=== PATIENT | male | born 1940 | race Caucasian/White ===

== ENCOUNTER 2022-02-03 06:49 | Emergency (ER) | payer MEDICARE, SELFPAY ==
[2022-02-03 06:58] VITALS: BP 116/77; PULSE 90; RESP 16; TEMP 36.6; O2SAT 98; BMI 36.9
--- NOTE | 2022-02-03 07:54 | CRLHL7_ITS ---
For Patients: As a result of the Century Cures Act, medical imaging exams and procedure reports are released immediately into your electronic medical record. You may view this report before your referring provider. If you have questions, please contact your health care provider. Indication: Constipation and Right Upper Quadrant Pain Technique: Abdomen 1 view. Comparison: None. Findings: Moderate diffuse colonic stool. Mild gaseous distension of small bowel loops in the right abdomen. No pleural effusion or suspicious intra-abdominal calcification. Degenerative changes. Impression: Constipation and mild small bowel ileus/enteritis. Dictated by Damon Dumont MD @ 02/03/2022 9:03:16 AM (Electronically Signed)
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
[2022-02-03 08:22] LABS: Basophils Percent Auto 0.2 % (0.0-3.0); Eosinophils Percent Auto 1.8 % (0.0-7.0); Hematocrit 45.6 % (37.0-53.0); Hemoglobin* 15.3 gm/dL (13.5-17.5); Immature Granulocytes Abs Auto 0.02 K/uL (0.00-0.30); Lymphocytes Percent Auto 10.2 % (20-44); Mean Corpuscular HGB Conc 34 gm/dL (32-36); Mean Corpuscular Hemoglobin 28 pg (26-34); Mean Corpuscular Volume 84 fL (80-100); Monocytes Percent Auto 7.9 % (0.0-11.0); Neutrophils Percent Auto 79.7 % (42.0-72.0); Platelet Count* 180 K/uL (140-440); RDW Coefficient of Variation % 12.9 % (11.5-15.5); White Blood Count* 12.29 K/uL (4.50-11.00)
[2022-02-03 08:24] LABS: Slide Review Reflex No
[2022-02-03 08:32] LABS: Chloride* 104 mmol/L (96-114); Potassium* 4.1 mmol/L (3.6-5.1); Sodium* 140 mmol/L (135-149)
[2022-02-03 08:33] LABS: Albumin* 4.4 g/dL (3.3-5.0)
[2022-02-03 08:34] LABS: Creatinine* 1.4 mg/dL (0.5-1.5); Est. Creatinine Clearance* 40.68; Estimated Glomerular Filt Rate 50.18
[2022-02-03 08:35] LABS: Blood Urea Nitrogen* 19 mg/dL (7-30); Carbon Dioxide* 27 mmol/L (20-32)
[2022-02-03 08:36] LABS: Alanine Aminotransferase* 16 U/L (4-50); Alkaline Phosphatase* 104 U/L (40-150); Aspartate Amino Transferase* 24 U/L (12-35); Bilirubin Direct* 0.5 mg/dL (0.0-0.5); Bilirubin Total* 1.3 mg/dL (0.1-1.5); Calcium* 9.3 mg/dL (8.4-10.6); Glucose* 114 mg/dL (60-115); Total Protein* 7.4 g/dL (6.0-8.3)
[2022-02-03 08:38] LABS: C Reactive Protein* 6.3 mg/dL (0.5-1.0)
[2022-02-03 09:29] VITALS: BP 125/65; PULSE 68; RESP 18; TEMP 36.3; O2SAT 94
[2022-02-03 09:52] LABS: Appearance Urine Clear (Clear); Bilirubin Urine 1+ (Negative); Blood Urine Negative (Negative); Color Urine Yellow (Yellow); Glucose Urine Negative (Negative); Ketones Urine Trace (Negative); Leukocyte Esterase Urine Negative (Negative); Nitrite Urine Negative (Negative); Protein Urine Negative (Negative); Specific Gravity Urine 1.025 (1.000-1.030); Urobilinogen Urine 0.2 (0.2-1.0); pH Urine 5.5 (5.0-8.5)
== END 2022-02-03 10:23 | disposition home or self-care (01) ==
PROVIDERS: Emergency Provider Family Medicine; PCP Family Medicine
DX: R10.11 Right upper quadrant pain (principal)
CPT/HCPCS: 36415; 74018; 80048; 80076; 81003; 85025; 86140; 99283; 99284

== ENCOUNTER 2022-04-15 09:36 | Outpatient (CLI) | payer MEDICARE, SELFPAY ==
[2022-04-15 12:46] LABS: Thyroid Stimulating Hormone* 0.686 uIU/mL (0.270-4.20)
== END 2022-04-15 09:37 | disposition home or self-care (01) ==
LOC: NFLDREF 09:38
PROVIDERS: PCP Family Medicine; Visit Provider Family Medicine
DX: E03.9 Hypothyroidism, unspecified (principal); F41.9 Anxiety disorder, unspecified
CPT/HCPCS: 84443

== ENCOUNTER 2022-07-04 09:46 | Emergency (ER) | payer MEDICARE, SELFPAY ==
[2022-07-04 09:53] VITALS: BP 136/71; PULSE 81; RESP 18; TEMP 35.8; O2SAT 96
== END 2022-07-04 11:22 | disposition left against medical advice (07) ==
LOC: ED 11:03
PROVIDERS: Emergency Provider Emergency Medicine Emergency Medical Services; PCP Family Medicine
DX: Z53.21 Procedure and treatment not carried out due to patient leaving prior to being seen by health care provider (principal)
CPT/HCPCS: 99283

== ENCOUNTER 2022-07-04 14:08 | Emergency (ER) | payer MEDICARE, SELFPAY ==
[2022-07-04 15:07] VITALS: BP 126/64; PULSE 75; RESP 18; TEMP 36.8; O2SAT 95; BMI 35.7
[2022-07-04 15:11] LABS: Appearance Urine Cloudy (Clear); Bilirubin Urine 1+ (Negative); Blood Urine 3+ (Negative); Color Urine Yellow (Yellow); Glucose Urine Negative (Negative); Ketones Urine Trace (Negative); Leukocyte Esterase Urine 3+ (Negative); Nitrite Urine Positive (Negative); Protein Urine 3+ (Negative); Specific Gravity Urine >= 1.030 (1.000-1.030); Urobilinogen Urine 0.2 (0.2-1.0); pH Urine 5.5 (5.0-8.5)
[2022-07-04 15:18] LABS: Bacteria Urine Few; RBC Urine >100 (0-2); Squamous Epithelial Cell Urine Few (None-Few); WBC Urine >100 (0-5)
--- NOTE | 2022-07-04 17:40 | ED.MALEGU ---
HPI - Male Genitourinary General Chief complaint: Urogenital Problems, Male Stated complaint: UTI Time Seen by Provider: 07/04/22 17:17 History of Present Illness HPI Narrative: This 81-year-old male comes in reporting symptoms of dysuria for the past 2 days. He initially had pain with voiding urine and now reports some blood tinged urine in the toilet. He does not report any fevers. Related Data Home Medications Medication Instructions Recorded Confirmed cyanocobalamin (vitamin B-12) 1,000 mcg PO DAILY 02/03/22 04/15/22 1,000 mcg capsule Previous Rx's Medication Instructions Recorded sertraline 100 mg tablet 100 - 150 mg PO DAILY #135 tabs 04/15/22 zolpidem 5 mg tablet 2.5 - 5 mg PO .QHS PRN sleep #30 04/15/22 tabs levothyroxine 75 mcg tablet 75 mcg PO DAILY #90 tabs 05/12/22 cephalexin 500 mg capsule 500 mg PO TID 10 days #30 caps 07/04/22 Allergies Allergy/AdvReac Type Severity Reaction Status Date / Time adhesive Allergy Mild Redness of Verified 04/15/22 09:07 Skin povidone Allergy Unknown Verified 04/15/22 09:07 povidone-iodine Allergy Unknown Verified 04/15/22 09:07 sulfadiazine Allergy Unknown Verified 04/15/22 09:07 sulfur dioxide Allergy Unknown Verified 04/15/22 09:07 Review of Systems Status of ROS: Reports: 10 or more systems reviewed and unremarkable except as noted in History and below Narrative: Constitutional: No fevers, no weight gain or loss. Eyes: No discharge. No vision changes. HENT: No congestion, no sore throat, no ear pain. Cardiovascular: No chest pain, no palpitations. Respiratory: No shortness of breath, no wheezes, no cough. Gastrointestinal: No abdominal pain, no vomiting, no diarrhea. Genitourinary: Dysuria symptoms with hematuria. Musculoskeletal: Normal range of motion. Skin: No rashes, no pruritis. Neurological: No dizziness, weakness, sensory change, speech change. Endo/Heme/Allergies: No bruising or bleeding. No polydipsia. Pysch: no suicidality, no anxiety, no insomnia. All other systems reviewed and are negative. [facility] Medical History (Updated 07/04/22 @ 17:42 by Jose Kowalski MD) History of renal calculi Hypothyroid Surgical History (Updated 04/14/22 @ 15:21 by Lilliana Ceja) History of cataract surgery History of hernia repair (1977) History of hip replacement History of knee replacement History of tonsillectomy History of total left knee replacement (2008) Family History (Updated 04/14/22 @ 15:26 by Lilliana Ceja) Aunt Breast cancer Mother CHF (congestive heart failure) Brother Seizure Other Diabetes Social History (Updated 04/14/22 @ 15:28 by Lilliana Ceja) Narrative: 3 adult children 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 Ex smoker 1977 hx of 30years does not drink alcohol Smoking Status: Former smoker Do you use any of these nicotine containing products: None Second hand tobacco smoke exposure: No How often do you have a drink containing alcohol: monthly or less How often do you have six or more drinks on one occasion: Never AUDIT-C Alcohol total score: 1 Non-prescribed substance use: denies use Little interest or pleasure in doing things: more than half the days Feeling down, depressed, or hopeless: more than half the days service: Yes Exam Narrative: Exam Narrative: Constitutional: Well-developed, well-nourished, no acute distress. HEENT: Normocephalic, atraumatic. Neck: Normal range of motion. Nontender. Supple. Heart: Intact distal pulses. Lungs: No chest discomfort. No wheezes, rhonchi, or rales. Abdomen: Nontender. Back: Normal range of motion. Extremities: Normal range of motion. No injury. Skin: Intact. No rash. Warm. No erythema or pallor. Neurologic: No altered sensation. No weakness. Alert and oriented. Psychiatric: No suicidality. No anxiety or depression. No insomnia. Nursing notes and vitals signs are reviewed. Const: Vital Signs, click to edit/add: Vital Signs - 24 hr 07/04/22 15:07 Temperature 98.3 F Pulse Rate [Pulse Oximeter] 75 Respiratory Rate 18 Blood Pressure [Ri ght Upper Arm] 126/64 Pulse Oximetry 95 Oxygen Delivery Me thod Room Air Course Vital Signs Vital signs: Initial Vital Signs Temperature 98.3 F 07/04/22 15:07 Temperature Source Temporal Artery Scan 07/04/22 15:07 Pulse Rate 75 07/04/22 15:07 Respiratory Rate 18 07/04/22 15:07 Blood Pressure 126/64 07/04/22 15:07 Blood Pressure Mean 84 07/04/22 15:07 Pulse Oximetry 95 07/04/22 15:07 Oxygen Delivery Method 07/04/22 15:07 Vital Signs Temperature 98.3 F 07/04/22 15:07 Pulse Rate 75 07/04/22 15:07 Respiratory Rate 18 07/04/22 15:07 Blood Pressure 126/64 07/04/22 15:07 Pulse Oximetry 95 07/04/22 15:07 Oxygen Delivery Method 07/04/22 15:07 Temperature 98.3 F 07/04/22 15:07 Pulse Rate 75 07/04/22 15:07 Respiratory Rate 18 07/04/22 15:07 Blood Pressure 126/64 07/04/22 15:07 Pulse Oximetry 95 07/04/22 15:07 Oxygen Delivery Method 07/04/22 15:07 MDM - Male Genitourinary MDM Narrative Medical decision making narrative: This patient comes in with symptoms of dysuria. Urinalysis does show obvious sign of infection. A prescription for Keflex is provided. Instructions were given regarding signs and symptoms that would indicate a need for return and re-evaluation. Lab Data Labs: Lab Results 07/04/22 Range/Units 14:46 Urine Color Yellow (Yellow) Urine Appearance Cloudy A (Clear) Urine pH 5.5 (5.0-8.5) Ur Specific [place] >= 1.030 (1.000-1.030) Urine Protein 3+ A (Negative) Urine Glucose (UA) Negative (Negative) Urine Ketones Trace A (Negative) Urine Blood 3+ A (Negative) Urine Nitrite Positive A (Negative) Urine Bilirubin 1+ A (Negative) Urine Urobilinogen 0.2 (0.2-1.0) Ur Leukocyte Esterase 3+ A (Negative) Urine RBC >100 A (0-2) Urine WBC >100 A (0-5) Ur Squamous Epith Cells Few (None-Few) Urine Bacteria Few A (None) Discharge Plan Discharge Clinical Impression: Urinary tract infection Patient Disposition: Home, Self-Care Condition: Stable Additional Instructions: Take medication as prescribed. Follow up with MD or return if worsening. Prescriptions: New cephalexin 500 mg capsule 500 mg PO TID 10 Days Qty: 30 0RF No Action sertraline 100 mg tablet 100 - 150 mg PO DAILY Qty: 135 3RF zolpidem 5 mg tablet 2.5 - 5 mg PO .QHS PRN (Reason: sleep) Qty: 30 5RF levothyroxine 75 mcg tablet 75 mcg PO DAILY Qty: 90 3RF cyanocobalamin (vitamin B-12) 1,000 mcg capsule 1,000 mcg PO DAILY Follow Up/Referrals: Damon Santiago MD [Primary Care Provider] - Stand Alone Forms: [employer] Info Instructions
== END 2022-07-04 18:56 | disposition home or self-care (01) ==
LOC: ED 17:57
PROVIDERS: Emergency Provider Emergency Medicine Emergency Medical Services; PCP Family Medicine
DX: N39.0 Urinary tract infection, site not specified (principal)
CPT/HCPCS: 81001; 81015; 87086; 87186; 99283; 99284

== ENCOUNTER 2022-09-05 07:14 | Emergency (ER) | payer MEDICARE, SELFPAY ==
[2022-09-05 07:19] VITALS: BP 179/80; PULSE 62; RESP 18; TEMP 35.8; O2SAT 96; BMI 36.6
--- NOTE | 2022-09-05 07:39 | ED_ITS ---
HPI - General Adult General Time Seen by Provider: 07:39 Date Seen: 09/05/22 Chief complaint: Flank Pain Stated complaint: kidney stone Time Seen by Provider: 09/05/22 07:34 Source: patient and RN notes reviewed Mode of arrival: ambulatory Limitations: no limitations History of Present Illness HPI narrative: 82-year-old male who presents today with about a week of right-sided back pain. No known injury. Says the pain is mostly present when he walks or bends forward. No dysuria or hematuria. Has not taken anything for this. No nausea vomiting. Patient is worried about a kidney stone, brings in a picture of x-ray from 2 months ago that he thinks might show stone. Elevate the x-ray, it is abdominal film in the area he is looking at is in the lateral abdomen on the right, far lateral to the kidney and appears to be edge of the ribs. Related Data Home Medications Medication Instructions Recorded Confirmed cyanocobalamin (vitamin B-12) 1,000 mcg PO DAILY 02/03/22 09/05/22 1,000 mcg capsule Previous Rx's Medication Instructions Recorded sertraline 100 mg tablet 100 - 150 mg PO DAILY #135 tabs 04/15/22 zolpidem 5 mg tablet 2.5 - 5 mg PO .QHS PRN sleep #30 04/15/22 tabs levothyroxine 75 mcg tablet 75 mcg PO DAILY #90 tabs 05/12/22 cephalexin 500 mg capsule 500 mg PO TID 10 days #30 caps 07/04/22 Allergies Allergy/AdvReac Type Severity Reaction Status Date / Time adhesive Allergy Mild Redness of Verified 09/05/22 07:25 Skin povidone Allergy Unknown Verified 09/05/22 07:25 povidone-iodine Allergy Unknown Verified 09/05/22 07:25 sulfadiazine Allergy Unknown Verified 09/05/22 07:25 sulfur dioxide Allergy Unknown Verified 09/05/22 07:25 PFSH PFSH Medical History (Updated 09/20/22 @ 00:00 by ) History of renal calculi Hypothyroid Surgical History (Updated 04/14/22 @ 15:21 by Lilliana Ceja (PSR)) History of cataract surgery History of hernia repair (1977) History of hip replacement History of knee replacement History of tonsillectomy History of total left knee replacement (2008) Family History (Updated 04/14/22 @ 15:26 by Lilliana Ceja (PSR)) Aunt Breast cancer Mother CHF (congestive heart failure) Brother Seizure Other Diabetes Social History (Updated 04/14/22 @ 15:28 by Lilliana Ceja (PSR)) Narrative: 3 adult children 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 Ex smoker 1977 hx of 30years does not drink alcohol Smoking Status: Former smoker Do you use any of these nicotine containing products: None Second hand tobacco smoke exposure: No How often do you have a drink containing alcohol: monthly or less How often do you have six or more drinks on one occasion: Never AUDIT-C Alcohol total score: 1 Non-prescribed substance use: denies use Little interest or pleasure in doing things: more than half the days Feeling down, depressed, or hopeless: more than half the days service: Yes Exam Narrative: Exam Narrative: General: Well-developed and well-nourished, no acute distress Head: Atraumatic and normocephalic Eyes: Pupils are equal reactive, extraocular motions intact, conjunctiva clear ENT: External nose and ears are normal, posterior pharynx without erythema or exudate Neck: No midline cervical tenderness, full spontaneous range of motion the neck, trachea midline, no adenopathy Heart: Regular rate and rhythm no murmurs or thrills Lungs: Clear to auscultation bilaterally without wheezes or crackles Abdomen: Soft, nontender, nondistended with active bowel sounds Musculoskeletal: No tenderness, pain in the right mid back area with movement Neurologic: Awake, alert, and oriented x3, no gross focal neurologic deficits, cranial nerves intact as tested Psych: Mood and affect are appropriate Skin: No rashes Const: Vital Signs, click to edit/add: Vital Signs - 24 hr 09/05/22 07:19 Temperature 96.5 F L Pulse Rate [Right Pulse Oximeter] 62 Respiratory Rate 18 Blood Pressure [Ri ght Upper Arm] 179/80 H Pulse Oximetry 96 Oxygen Delivery Me thod Room Air Course Course Hospital Course: Patient seen examined, prior records reviewed. Patient presents with right- sided back pain that is been going on for about a week. No cough and pain is not worse with breathing to suggest pneumonia, pulmonary embolism, or thoracic pathology. No CVA tenderness or abdominal tenderness. Pain is worse with movement. Symptoms are most consistent with musculoskeletal pain. Urinalysis will be performed, if there is significant hematuria, consider CT scan of the abdomen to evaluate kidney stone but clinically kidney stone is unlikely. Sign out to oncoming provider to follow up on urinalysis. Vital Signs Vital signs: Initial Vital Signs Temperature 96.5 F L 09/05/22 07:19 Temperature Source Temporal Artery Scan 09/05/22 07:19 Pulse Rate 62 09/05/22 07:19 Respiratory Rate 18 09/05/22 07:19 Blood Pressure 179/80 H 09/05/22 07:19 Blood Pressure Mean 113 09/05/22 07:19 Blood Pressure Position Sitting 09/05/22 07:19 Pulse Oximetry 96 09/05/22 07:19 Oxygen Delivery Method 09/05/22 07:19 Vital Signs Temperature 96.5 F L 09/05/22 07:19 Pulse Rate 62 09/05/22 07:19 Respiratory Rate 18 09/05/22 07:19 Blood Pressure 179/80 H 09/05/22 07:19 Pulse Oximetry 96 09/05/22 07:19 Oxygen Delivery Method 09/05/22 07:19 Temperature 96.5 F L 09/05/22 07:19 Pulse Rate 64 09/05/22 10:35 Respiratory Rate 18 09/05/22 10:35 Blood Pressure 168/107 H 09/05/22 10:35 Pulse Oximetry 98 09/05/22 10:35 Oxygen Delivery Method 09/05/22 10:35 Medical Decision Making Lab Data Labs: Lab Results 09/05/22 Range/Units 09:03 Urine Color Dark yellow (Yellow) Urine Appearance Clear (Clear) Urine pH 5.5 (5.0-8.5) Ur Specific [place] 1.025 (1.000-1.030) Urine Protein Negative (Negative) Urine Glucose (UA) Negative (Negative) Urine Ketones Negative (Negative) Urine Blood Negative (Negative) Urine Nitrite Negative (Negative) Urine Bilirubin Negative (Negative) Urine Urobilinogen 0.2 (0.2-1.0) Ur Leukocyte Esterase Negative (Negative) Urine RBC 0-2 (0-2) Urine WBC 0-2 (0-5) Ur Squamous Epith Cells None (None-Few) Urine Bacteria Few A (None) Discharge Plan Discharge Clinical Impression: Acute right-sided low back pain Patient Disposition: Home, Self-Care Condition: Stable Instructions: Acute Low Back Pain (ED) Additional Instructions: Ice packs or warm packs for comfort. Tylenol or ibuprofen for pain. Follow-up with your primary care doctor this week for consideration for physical therapy or further evaluation. Activity Level: No Restrictions and Activity as Tolerated Discharge Diet: Regular Prescriptions: No Action sertraline 100 mg tablet 100 - 150 mg PO DAILY Qty: 135 3RF zolpidem 5 mg tablet 2.5 - 5 mg PO .QHS PRN (Reason: sleep) Qty: 30 5RF levothyroxine 75 mcg tablet 75 mcg PO DAILY Qty: 90 3RF cyanocobalamin (vitamin B-12) 1,000 mcg capsule 1,000 mcg PO DAILY cephalexin 500 mg capsule 500 mg PO TID 10 Days Qty: 30 0RF Follow Up/Referrals: Damon Santiago MD [Primary Care Provider] - Stand Alone Forms: [employer] Info Instructions
[2022-09-05 09:07] LABS: Color Urine Dark yellow (Yellow)
[2022-09-05 09:08] LABS: Appearance Urine Clear (Clear); Bilirubin Urine Negative (Negative); Blood Urine Negative (Negative); Glucose Urine Negative (Negative); Ketones Urine Negative (Negative); Leukocyte Esterase Urine Negative (Negative); Nitrite Urine Negative (Negative); Protein Urine Negative (Negative); Specific Gravity Urine 1.025 (1.000-1.030); Urobilinogen Urine 0.2 (0.2-1.0); pH Urine 5.5 (5.0-8.5)
[2022-09-05 09:22] LABS: Bacteria Urine Few; RBC Urine 0-2 (0-2); WBC Urine 0-2 (0-5)
[2022-09-05 10:35] VITALS: BP 168/107; PULSE 64; RESP 18; O2SAT 98
== END 2022-09-05 10:37 | disposition home or self-care (01) ==
PROVIDERS: Emergency Provider Family Medicine; PCP Family Medicine
DX: M54.9 Dorsalgia, unspecified (principal)
CPT/HCPCS: 81001; 87086; 99283

== ENCOUNTER 2023-07-21 09:54 | Outpatient (CLI) | payer MEDICARE, SELFPAY | END 2023-07-21 09:55 | disposition home or self-care (01) | PROVIDERS: PCP Family Medicine; Visit Provider Family Medicine | DX: E78.2 Mixed hyperlipidemia (principal); E03.9 Hypothyroidism, unspecified | CPT/HCPCS: 80048; 80061; 84439; 84443 ==

== ENCOUNTER 2023-10-04 12:50 | Emergency (ER) | payer MEDICARE, SELFPAY ==
[2023-10-04 12:54] VITALS: BP 138/67; PULSE 66; RESP 18; TEMP 36.4; O2SAT 95; BMI 27.4
--- NOTE | 2023-10-04 13:09 | ED_ITS ---
HPI - Extremity Injury (Lower) General Date Seen: 10/04/23 Chief Complaint: Extremity Pain/Injury, Lower Stated Complaint: R knee injury Time Seen by Provider: 10/04/23 12:52 Source: patient Mode of arrival: ambulatory Limitations: no limitations History of Present Illness HPI Narrative: Patient is an 83-year-old male presenting to emergency department for left knee pain. He states 2 days ago he was walking when he tripped over his 's walker and landed on his knee. He did have an abrasion to the right knee but denies any other injuries. He has been able to ambulate since the fall. Does state the pain seems like it is getting worse and describes as a 7/10 sharp pain. Has not been taking any pain medication as he states he does not want any. No previous injuries to this knee. Does have previous left knee replacement. States it always hurts whether he is resting or moving. Has been able to walk without issue. No other concerns noted. Denies numbness or weakness. Has not noticed any worsening swelling. Related Data Home Medications Medication Instructions Recorded Confirmed cyanocobalamin (vitamin B-12) 1,000 mcg PO DAILY 02/03/22 07/21/23 1,000 mcg capsule rosuvastatin 5 mg tablet 5 mg PO QDAY 07/21/23 Previous Rx's Medication Instructions Recorded zolpidem 5 mg tablet 2.5 - 5 mg (0.5 - 1 x 5 mg) PO QHS 06/02/23 PRN sleep #30 tabs levothyroxine 100 mcg tablet 100 mcg PO DAILY #90 tabs 07/21/23 sertraline 100 mg tablet 100 - 150 mg (1 - 1.5 x 100 mg) PO 07/21/23 DAILY #135 tabs Allergies Allergy/AdvReac Type Severity Reaction Status Date / Time adhesive Allergy Mild Redness of Verified 07/21/23 09:36 Skin povidone Allergy Unknown Verified 07/21/23 09:36 povidone-iodine Allergy Unknown Verified 07/21/23 09:36 sulfadiazine Allergy Unknown Verified 07/21/23 09:36 sulfur dioxide Allergy Unknown Verified 07/21/23 09:36 Review of Systems Narrative: Pertinent systems reviewed and were negative unless stated in HPI PFSH PFSH Medical History Insomnia ?G47.00 - Insomnia, unspecified (ICD-10) Major depression, recurrent ?F33.9 - Major depressive disorder, recurrent, unspecified (ICD-10) Mixed hyperlipidemia ?E78.2 - Mixed hyperlipidemia (ICD-10) History of renal calculi ?Z87.442 - Personal history of urinary calculi (ICD-10) Hypothyroid ?E03.9 - Hypothyroidism, unspecified (ICD-10) Surgical History History of total left knee replacement (2008) ?Z96.652 - Presence of left artificial knee joint (ICD-10) History of hernia repair (1977) ?Z98.890 - Other specified postprocedural states (ICD-10) ?Z87.19 - Personal history of other diseases of the digestive system (ICD-10) History of tonsillectomy ?Z90.89 - Acquired absence of other organs (ICD-10) History of knee replacement ?Z96.659 - Presence of unspecified artificial knee joint (ICD-10) History of hip replacement ?Z96.649 - Presence of unspecified artificial hip joint (ICD-10) History of cataract surgery ?Z98.49 - Cataract extraction status, unspecified eye (ICD-10) Family History Aunt Breast cancer Mother CHF (congestive heart failure) Brother Seizure Other Diabetes Social History Narrative: 3 adult children 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 Ex smoker 1977 hx of 30years does not drink alcohol What is your current living situation?: I presently have a place to live Problems where you live: no known problems In the past 12 months, utilities in danger of being shut off: no In past 12 months, lack of transportation kept you from medical appts, meetings, work, or getting things needed for daily living: no In the past 12 mos, have been you worried that your food would run out before you had money to buy more?: never true In the past 12 mos, the food you bought just didn't last and you didn't have money to buy more?: never true Smoking Status: Former smoker Do you use any of these nicotine containing products: None Second hand tobacco smoke exposure: No How often do you have a drink containing alcohol: monthly or less How often do you have six or more drinks on one occasion: Never AUDIT-C Alcohol total score: 1 Non-prescribed substance use: denies use How often does anyone, including family, friends and others, physically hurt you : never How often does anyone, including family, friends and others, insult or talk down to you: never How often does anyone, including family, friends and others, threaten you with harm: never How often does anyone, including family, friends and others, scream or curse at you: never Little interest or pleasure in doing things: not at all Feeling down, depressed, or hopeless: not at all service: Yes Exam Narrative: Exam Narrative: Const: Well-nourished, Well-developed, in mild distress Eyes: PERRL, no conjunctival injection, and symmetrical lids HENT: Atraumatic external nose and ears. Moist mucous membranes. MSK:Extremities w/o deformity, Normal Active ROM, tenderness noted to the lateral joint line of the right knee. No notable swelling noted Skin: Warm, Dry. Abrasion of 1 cm in diameter just distal to the patella Neuro: Normal Muscle tone, No focal neurological deficits. Psych: Awake, Alert, & Oriented x3. Appropriate mood and affect. Const: Vital Signs, click to edit/add: Vital Signs - 24 hr 10/04/23 12:54 Temperature 97.6 F Pulse Rate [Pulse Oximeter] 66 Respiratory Rate 18 Blood Pressure [Ri ght Upper Arm] 138/67 Pulse Oximetry 95 Oxygen Delivery Me thod Room Air Course Vital Signs Vital signs: Initial Vital Signs Temperature 97.6 F 10/04/23 12:54 Temperature Source Temporal Artery Scan 10/04/23 12:54 Pulse Rate 66 10/04/23 12:54 Respiratory Rate 18 10/04/23 12:54 Blood Pressure 138/67 10/04/23 12:54 Blood Pressure Mean 90 10/04/23 12:54 Blood Pressure Position Sitting 10/04/23 12:54 Pulse Oximetry 95 10/04/23 12:54 Oxygen Delivery Method Room Air 10/04/23 12:54 Vital Signs Temperature 97.6 F 10/04/23 12:54 Pulse Rate 66 10/04/23 12:54 Respiratory Rate 18 10/04/23 12:54 Blood Pressure 138/67 10/04/23 12:54 Pulse Oximetry 95 10/04/23 12:54 Oxygen Delivery Method Room Air 10/04/23 12:54 Temperature 97.6 F 10/04/23 12:54 Pulse Rate 66 10/04/23 12:54 Respiratory Rate 18 10/04/23 12:54 Blood Pressure 138/67 10/04/23 12:54 Pulse Oximetry 95 10/04/23 12:54 Oxygen Delivery Method Room Air 10/04/23 12:54 MDM - Extremity Injury (Lower) MDM Narrative Medical decision making narrative: Patient is an 83-year-old male with right knee pain. Patient is able to ambulate. There is tenderness the lateral joint line. Will do an x-ray of the knee. He is neurovascular intact. No further workup is necessary. X-ray shows a small joint effusion but no obvious fractures. Patient is otherwise doing well and will be discharged home. I informed him the follow-up with orthopedics if symptoms persist. He is agreeable to this plan. Patient does not want any pain medication. Imaging Data Right knee x-ray: Radiologist's impression: Bones: Alignment is normal. No displaced fractures or bone lesions. Joint spaces: Moderate tricompartmental osteoarthritis. Soft tissues: Basilar calcifications. Dictated by Geovanny Miranda MD @ 10/04/2023 1:52:10 PM ----- ADDENDUM ----- Addendum: Soft tissues: Vascular calcifications Joint spaces: Small joint effusion. Dictated by Geovanny Miranda MD @ Oct 04 2023 1:52PM Discharge Plan Discharge Clinical Impression: Acute knee pain Qualifiers: Laterality: right Qualified Code(s): M25.561 - Pain in right knee Patient Disposition: Home, Self-Care Condition: Stable Instructions: Knee Pain (ED) Additional Instructions: You can take Tylenol and ibuprofen for pain. There is a small amount of fluid buildup within you knee and this should go away with time. If the pain persists you follow-up with orthopedic clinic and call to make an appointment at [phone]. Prescriptions: No Action sertraline 100 mg tablet 100 - 150 mg PO DAILY Qty: 135 3RF cyanocobalamin (vitamin B-12) 1,000 mcg capsule 1,000 mcg PO DAILY zolpidem 5 mg tablet 2.5 - 5 mg PO QHS PRN (Reason: sleep) Qty: 30 5RF levothyroxine 100 mcg tablet 100 mcg PO DAILY Qty: 90 0RF rosuvastatin 5 mg tablet 5 mg PO QDAY Follow Up/Referrals: Damon Santiago MD [Primary Care Provider] - Stand Alone Forms: [employer] Info Instructions
--- NOTE | 2023-10-04 13:11 | XR_ITS ---
Patient: THIERRY YUAN Facility:?[facility] Patient ID:?[id number] Site Patient ID:?[id number]. Site :?[id number] Study:?XRay-Extremity Right 4V KNEE-10/04/2023 1:37:23 PM Ordering Physician:?DR. FLORES Final Report: Indication: Trauma. Technique: Right knee, 4 views. Comparison: None. Findings/Impression: Bones: Alignment is normal. No displaced fractures or bone lesions. Joint spaces: Moderate tricompartmental osteoarthritis. Soft tissues: Basilar calcifications. Dictated by Geovanny Miranda MD @ 10/04/2023 1:52:10 PM ----- ADDENDUM ----- Addendum: Soft tissues: Vascular calcifications Joint spaces: Small joint effusion. Dictated by Geovanny Miranda MD @ Oct 04 2023 1:52PM Signed by:?Geovanny Miranda MD @10/04/2023 1:52:10 PM (Electronic Signature)
== END 2023-10-04 14:10 | disposition home or self-care (01) ==
PROVIDERS: Emergency Provider Student in an Organized Health Care Education/Training Program; PCP Family Medicine
DX: M25.561 Pain in right knee (principal)
CPT/HCPCS: 73564; 99282; 99283

== ENCOUNTER 2023-10-19 11:15 | Outpatient (CLI) | payer MEDICARE, SELFPAY | END 2023-10-19 11:16 | disposition home or self-care (01) | LOC: NFLDREF 10-20 06:11 | PROVIDERS: PCP Family Medicine; Referring Provider Family Medicine; Visit Provider Family Medicine | DX: E03.9 Hypothyroidism, unspecified (principal) | CPT/HCPCS: 84439; 84443 ==

== ENCOUNTER 2023-12-14 15:17 | Outpatient (CLI) | payer MEDICARE, SELFPAY | END 2023-12-14 15:18 | disposition home or self-care (01) | LOC: NFLDREF 12-15 06:06 | PROVIDERS: PCP Family Medicine; Referring Provider Family Medicine; Visit Provider Family Medicine | DX: E03.9 Hypothyroidism, unspecified (principal) | CPT/HCPCS: 84439; 84443 ==

== ENCOUNTER 2024-03-25 11:16 | Outpatient (CLI) | payer MEDICARE, SELFPAY | END 2024-03-25 11:17 | disposition home or self-care (01) | LOC: NFLDREF 03-29 02:17 | PROVIDERS: PCP Family Medicine; Referring Provider Family Medicine; Visit Provider Family Medicine | DX: E03.9 Hypothyroidism, unspecified (principal) | CPT/HCPCS: 84443 ==

== ENCOUNTER 2024-07-16 08:30 | Outpatient (CLI) | payer MEDICARE, SELFPAY | END 2024-07-16 08:31 | disposition home or self-care (01) | PROVIDERS: PCP Family Medicine; Visit Provider Family Medicine | DX: E03.9 Hypothyroidism, unspecified (principal); E78.2 Mixed hyperlipidemia; E66.9 Obesity, unspecified; R73.03 Prediabetes; E53.8 Deficiency of other specified B group vitamins; E55.9 Vitamin D deficiency, unspecified | CPT/HCPCS: 80048; 80061; 84439; 84443; 84460 ==